=== PATIENT | female | born 1990 | race Two or more races ===

== ENCOUNTER 2020-06-26 06:59 | Inpatient (IN) | payer OTHER ==
[2020-06-26] MEDS ORDERED: SODIUM CHLORIDE 1,000 ML IV STA (08:12)
[2020-06-26] MEDS ORDERED: DEXAMETHASONE SOD PHOSPHATE 4 MG/1 ML VIAL IVPUSH ONE (08:13)
[2020-06-26] MEDS ORDERED: DEXAMETHASONE SOD PHOSPHATE 10 MG/1 ML VIAL ONE (08:15)
[2020-06-26 08:57] LABS: VENOUS O2 SATURATION 31.3 % (70-80); VENOUS PH 7.394 (7.310-7.410)
[2020-06-26 09:00] LABS: BASO % 0.3 % (0-2.0); HEMATOCRIT 49.7 % (32.4-45.2); HEMOGLOBIN 16.7 GM/dL (10.7-15.3); LYMPH % 8.9 % (8-40); MCH 28.6 pg (25.7-33.7); MCHC 33.6 g/dl (32.0-36.0); MEAN CELL VOLUME 84.9 fl (80-96); MONO % 4.5 % (3.8-10.2); NEUT % 86.3 % (42.8-82.8); PLATELET COUNT 411 K/MM3 (134-434); RBC 5.85 M/mm3 (3.60-5.2); RDW 14.1 % (11.6-15.6); WHITE BLOOD COUNT 7.5 K/mm3 (4.0-10.0)
[2020-06-26 09:15] LABS: CHLORIDE 95 mmol/L (98-107); SODIUM 131 mmol/L (136-145)
[2020-06-26 09:17] LABS: CALCIUM 8.4 mg/dL (8.5-10.1)
[2020-06-26 09:18] LABS: EPI CELLS >36 /uL (0-25.1); HYALINE CASTS 2 /uL (0-3.1); URINE APPEARANCE CLOUDY; URINE BACTERIA 464 /uL (0-1359); URINE BILIRUBIN NEGATIVE (NEGATIVE); URINE COLOR YELLOW; URINE GLUCOSE (UA) 3+ (NEGATIVE); URINE KETONE 2+ (NEGATIVE); URINE LEUK ESTERASE NEGATIVE (NEGATIVE); URINE NITRITE NEGATIVE (NEGATIVE); URINE PROTEIN 4+ (NEGATIVE); URINE WBC 19 /uL (0-25.8)
[2020-06-26 09:18] LABS: ALBUMIN 1.8 g/dl (3.4-5.0); ANION GAP 9 MMOL/L (8-16); BLOOD UREA NITROGEN 14.4 mg/dL (7-18); CO2 27 mmol/L (21-32); GLUCOSE,RANDOM 346 mg/dL (74-106); MAGNESIUM 2.2 mg/dL (1.8-2.4)
[2020-06-26 09:20] LABS: BILIRUBIN,DIRECT 0.1 mg/dL (0.0-0.2)
[2020-06-26 09:21] LABS: CREATININE 0.8 mg/dL (0.55-1.3); SGOT/AST 49 U/L (15-37); SGPT/ALT 26 U/L (13-61)
[2020-06-26 09:22] LABS: BILIRUBIN,TOTAL 0.6 mg/dL (0.2-1)
[2020-06-26 09:23] LABS: TOT PROT 6.2 g/dl (6.4-8.2)
[2020-06-26 09:24] LABS: ALK PHOS 94 U/L (45-117)
[2020-06-26 09:26] LABS: LDH 903 U/L (84-246)
[2020-06-26 09:39] LABS: INR 1.06 (0.83-1.09)
[2020-06-26 09:41] LABS: ACTIVATED PTT 32.5 SECONDS (25.2-36.5)
[2020-06-26] MEDS ORDERED: ONDANSETRON 4 MG/2 ML VIAL IVPUSH PRN (11:43)
[2020-06-26 14:00] LABS: URINE RBC 385.2 /uL (0-23.9)
[2020-06-26] MEDS: INSULIN SLIDING SCALE (NOVOLOG) 1 VIAL SQ SCH ×2 (16:25→21:14)
[2020-06-26] MEDS: ACETAMINOPHEN 325 MG TABLET (FP) PO PRN (17:44)
[2020-06-26] MEDS ORDERED: INSULIN (NOVOLOG) ASPART 100 UNITS/ML 10ML VIAL ONE (20:52)
[2020-06-26] MEDS: ZINC SULFATE 220 MG CAPSULE (FP) PO SCH (21:09)
[2020-06-26] MEDS: ASCORBIC ACID 500 MG TABLET (FP) PO SCH (21:10)
[2020-06-26] MEDS: MELATONIN 5 MG TABLETS PO PRN (21:38)
[2020-06-26] MEDS ORDERED: ASCORBIC ACID 500 MG TABLET (FP) PO SCH (22:00)
[2020-06-27] MEDS: ACETAMINOPHEN 325 MG TABLET (FP) PO PRN ×2 (02:14→10:41)
[2020-06-27] MEDS: INSULIN SLIDING SCALE (NOVOLOG) 1 VIAL SQ SCH ×4 (06:53→22:28)
[2020-06-27 09:26] LABS: HEMATOCRIT 41.7 % (32.4-45.2); MCH 28.3 pg (25.7-33.7); MCHC 33.6 g/dl (32.0-36.0); MEAN CELL VOLUME 84.2 fl (80-96); MEAN PLT VOLUME 8.1 fl (7.5-11.1); PLATELET COUNT 450 K/MM3 (134-434); RBC 4.95 M/mm3 (3.60-5.2); WHITE BLOOD COUNT 8.8 K/mm3 (4.0-10.0)
[2020-06-27 10:02] LABS: CALCIUM 8.1 mg/dL (8.5-10.1)
[2020-06-27 10:03] LABS: BLOOD UREA NITROGEN 15.3 mg/dL (7-18)
[2020-06-27 10:06] LABS: CREATININE 0.6 mg/dL (0.55-1.3)
[2020-06-27] MEDS: ENOXAPARIN NA (PORCINE) 40 MG/0.4 ML DISP.SYRIN SQ SCH (10:41)
[2020-06-27] MEDS: ASCORBIC ACID 500 MG TABLET (FP) PO SCH ×2 (10:41→22:28)
[2020-06-27] MEDS: CHOLECALCIFEROL (VIT D3) 1,000 UNIT (25 MCG) TABLET PO SCH (10:41)
[2020-06-27] MEDS: ZINC SULFATE 220 MG CAPSULE (FP) PO SCH ×2 (10:41→22:28)
[2020-06-27] MEDS ORDERED: ACETAMINOPHEN 1000 MG/100 ML VIAL (NON FORMULARY) IVPB ONE (12:04)
[2020-06-27] MEDS ORDERED: REMDESIVIR 200 MG in SODIUM CHLORIDE 210 ML IVPB ONE (13:00)
[2020-06-27] MEDS ORDERED: REMDESIVIR 200 MG in SODIUM CHLORIDE 250 ML IVPB ONE (13:00)
[2020-06-27] MEDS: DEXAMETHASONE SOD PHOSPHATE 4 MG/1 ML VIAL IVPUSH SCH (15:12)
[2020-06-27] MEDS: BUDESONIDE/FORMETEROL FUMARATE 160/4.5 mcg INHALER IH SCH ×2 (15:12→22:29)
[2020-06-27] MEDS ORDERED: INSULIN (NOVOLOG) ASPART 100 UNITS/ML 10ML VIAL ONE (22:02)
[2020-06-27] MEDS: MELATONIN 5 MG TABLETS PO PRN (22:37)
[2020-06-28] MEDS: INSULIN SLIDING SCALE (NOVOLOG) 1 VIAL SQ SCH ×4 (06:01→21:36)
[2020-06-28] MEDS: ACETAMINOPHEN 325 MG TABLET (FP) PO PRN ×2 (08:42→21:37)
[2020-06-28 08:57] LABS: BLOOD UREA NITROGEN 13.5 mg/dL (7-18); CALCIUM 8.4 mg/dL (8.5-10.1)
[2020-06-28 09:00] LABS: CREATININE 0.5 mg/dL (0.55-1.3)
[2020-06-28 09:02] LABS: BILIRUBIN,TOTAL 0.4 mg/dL (0.2-1)
[2020-06-28 09:12] LABS: ALBUMIN 1.4 g/dl (3.4-5.0)
[2020-06-28] MEDS: ENOXAPARIN NA (PORCINE) 40 MG/0.4 ML DISP.SYRIN SQ SCH (09:56)
[2020-06-28] MEDS: ASCORBIC ACID 500 MG TABLET (FP) PO SCH ×2 (09:57→21:36)
[2020-06-28] MEDS: CHOLECALCIFEROL (VIT D3) 1,000 UNIT (25 MCG) TABLET PO SCH (09:57)
[2020-06-28] MEDS: BUDESONIDE/FORMETEROL FUMARATE 160/4.5 mcg INHALER IH SCH ×2 (09:58→21:37)
[2020-06-28] MEDS: ZINC SULFATE 220 MG CAPSULE (FP) PO SCH ×2 (09:58→21:36)
[2020-06-28] MEDS: DEXAMETHASONE SOD PHOSPHATE 4 MG/1 ML VIAL IVPUSH SCH (09:59)
[2020-06-28] MEDS: REMDESIVIR 100 MG in SODIUM CHLORIDE 250 ML IVPB SCH (12:55)
[2020-06-28] MEDS ORDERED: INSULIN (NOVOLOG) ASPART 100 UNITS/ML 10ML VIAL ONE (21:12)
[2020-06-28] MEDS: MELATONIN 5 MG TABLETS PO PRN (21:36)
[2020-06-28] MEDS: HYDROCORTISONE 0.5% TOPICAL CREAM 30 GM TUBE TP PRN (22:48)
[2020-06-28] MEDS ORDERED: diphenhydrAMINE HCL 25 MG CAPSULE (FP) PO ONE (23:22)
[2020-06-29] MEDS: HYDROCORTISONE 0.5% TOPICAL CREAM 30 GM TUBE TP PRN (01:01)
[2020-06-29] MEDS: INSULIN SLIDING SCALE (NOVOLOG) 1 VIAL SQ SCH ×4 (06:18→22:02)
[2020-06-29] MEDS: ASCORBIC ACID 500 MG TABLET (FP) PO SCH ×2 (10:00→22:03)
[2020-06-29] MEDS: BUDESONIDE/FORMETEROL FUMARATE 160/4.5 mcg INHALER IH SCH ×2 (10:00→22:03)
[2020-06-29] MEDS: CHOLECALCIFEROL (VIT D3) 1,000 UNIT (25 MCG) TABLET PO SCH (10:00)
[2020-06-29] MEDS: ZINC SULFATE 220 MG CAPSULE (FP) PO SCH ×2 (10:00→22:03)
[2020-06-29] MEDS: ENOXAPARIN NA (PORCINE) 40 MG/0.4 ML DISP.SYRIN SQ SCH (10:00)
[2020-06-29] MEDS: DEXAMETHASONE SOD PHOSPHATE 4 MG/1 ML VIAL IVPUSH SCH (10:00)
[2020-06-29] MEDS: REMDESIVIR 100 MG in SODIUM CHLORIDE 250 ML IVPB SCH (13:04)
[2020-06-29 14:40] VITALS: BMI 32.4
[2020-06-29] MEDS: INSULIN (LEVEMIR) 100 UNITS/ML UNITS SQ SCH ×2 (17:59→22:02)
[2020-06-29] MEDS ORDERED: INSULIN (NOVOLOG) ASPART 100 UNITS/ML 10ML VIAL ONE (21:54)
[2020-06-30] MEDS: MELATONIN 5 MG TABLETS PO PRN ×2 (01:24→21:03)
[2020-06-30] MEDS: INSULIN SLIDING SCALE (NOVOLOG) 1 VIAL SQ SCH ×4 (06:26→21:04)
[2020-06-30] MEDS: ENOXAPARIN NA (PORCINE) 40 MG/0.4 ML DISP.SYRIN SQ SCH (09:51)
[2020-06-30] MEDS: DEXAMETHASONE SOD PHOSPHATE 4 MG/1 ML VIAL IVPUSH SCH (09:52)
[2020-06-30] MEDS: ASCORBIC ACID 500 MG TABLET (FP) PO SCH ×2 (09:52→21:02)
[2020-06-30] MEDS: ZINC SULFATE 220 MG CAPSULE (FP) PO SCH ×2 (09:52→21:02)
[2020-06-30] MEDS: CHOLECALCIFEROL (VIT D3) 1,000 UNIT (25 MCG) TABLET PO SCH (09:52)
[2020-06-30] MEDS: INSULIN (LEVEMIR) 100 UNITS/ML UNITS SQ SCH ×2 (09:53→21:03)
[2020-06-30] MEDS: BUDESONIDE/FORMETEROL FUMARATE 160/4.5 mcg INHALER IH SCH ×2 (09:54→21:04)
[2020-06-30] MEDS ORDERED: INSULIN (NOVOLOG) ASPART 100 UNITS/ML 10ML VIAL ONE ×3 (11:13→20:53)
[2020-06-30] MEDS: REMDESIVIR 100 MG in SODIUM CHLORIDE 250 ML IVPB SCH (13:10)
[2020-06-30] MEDS ORDERED: INSULIN (LEVEMIR) 100 UNITS/ML UNITS SQ ONE (14:31)
[2020-07-01] MEDS: INSULIN SLIDING SCALE (NOVOLOG) 1 VIAL SQ SCH ×4 (06:12→16:42)
[2020-07-01] MEDS: DEXAMETHASONE SOD PHOSPHATE 4 MG/1 ML VIAL IVPUSH SCH (10:08)
[2020-07-01] MEDS: INSULIN (LEVEMIR) 100 UNITS/ML UNITS SQ SCH (10:09)
[2020-07-01] MEDS: ENOXAPARIN NA (PORCINE) 40 MG/0.4 ML DISP.SYRIN SQ SCH (10:10)
[2020-07-01] MEDS: CHOLECALCIFEROL (VIT D3) 1,000 UNIT (25 MCG) TABLET PO SCH (10:10)
[2020-07-01] MEDS: ZINC SULFATE 220 MG CAPSULE (FP) PO SCH (10:10)
[2020-07-01] MEDS: BUDESONIDE/FORMETEROL FUMARATE 160/4.5 mcg INHALER IH SCH (10:10)
[2020-07-01] MEDS: ASCORBIC ACID 500 MG TABLET (FP) PO SCH (10:10)
[2020-07-01] MEDS ORDERED: INSULIN (NOVOLOG) ASPART 100 UNITS/ML 10ML VIAL ONE (11:14)
[2020-07-01] MEDS ORDERED: INSULIN (LEVEMIR) 100 UNITS/ML UNITS SQ ONE (11:25)
[2020-07-01] MEDS: REMDESIVIR 100 MG in SODIUM CHLORIDE 250 ML IVPB SCH (13:27)
[2020-07-01 14:58] VITALS: BP 119/70; PULSE 63; TEMP 98.4
== END 2020-07-01 17:10 | disposition home or self-care (01) | DRG 137 ==
LOC: JER 06:59 → JERBED 10:28 → J5S 15:57
PROVIDERS: ADMIT Internal Medicine
PROC: XW033E5 Introduction of Remdesivir Anti-infective into Peripheral Vein, Percutaneous Approach, New Technology Group 5 (ICD-10-PCS; principal; 2020-06-27)
DX: U07.1 COVID-19 (principal); J12.82 Pneumonia due to coronavirus disease 2019; J96.01 Acute respiratory failure with hypoxia; I10 Essential (primary) hypertension; E11.9 Type 2 diabetes mellitus without complications; E66.9 Obesity, unspecified; Z68.32 Body mass index [BMI] 32.0-32.9, adult; E78.5 Hyperlipidemia, unspecified
CPT/HCPCS: 36415; 71045-TC-FY; 80048; 80053; 81003; 82248; 82550; 82728; 82803; 82962; 83036; 83615; 83735; 84484; 84703; 85025; 85027; 85379; 85610; 85730; 86140; 86769; 86850; 86900; 86901; 87086; 87804; 93005; 93010; 94761; 99285-25; C9399; C9803; J0131; U0003; U0005